=== PATIENT | male | born 1945 | race Caucasian/White ===

== ENCOUNTER 2016-10-22 18:25 | Inpatient (IN) | payer OTHER ==
[~2016-10-22] VITALS: Ht 157.5 cm; Wt 62.2 kg
[2016-10-22 19:58] LABS: BASOPHIL % 0.3 % (0-2); PLATELET COUNT 139 x10^3mcL (130-400)
[2016-10-22] MEDS ORDERED: LIPITOR80 MG PO (19:59)
[2016-10-22] MEDS ORDERED: LEVOTHYROXINE0.1 M2 PO (19:59)
[2016-10-22] MEDS ORDERED: PLAQUENIL200 MG PO (19:59)
[2016-10-22] MEDS ORDERED: ZESTRIL20 MG PO (19:59)
[2016-10-22] MEDS ORDERED: ARAVA20 MG PO (20:00)
[2016-10-22] MEDS ORDERED: METFORMIN HCL500 MG PO (20:00)
[2016-10-22] MEDS ORDERED: METHOTREXATE2.5 M2 PO (20:00)
[2016-10-22] MEDS ORDERED: CLOPIDOGREL75 M1 PO (20:01)
[2016-10-22] MEDS ORDERED: IBUPROFEN400 MG PO (20:01)
[2016-10-22] MEDS ORDERED: MINOCYCLINE HY100 MG PO (20:02)
[2016-10-22] MEDS ORDERED: NORCO 10-325 T1 EACH PO (20:03)
[2016-10-22 20:06] LABS: CALCIUM 8.1 mg/dL (8.5-10.1); CARBON DIOXIDE 22.5 mmol/L (21-32); CREATININE SERUM 1.3 mg/dL (0.7-1.3); POTASSIUM SERUM 3.6 mmol/L (3.5-5.1)
[2016-10-22 20:12] LABS: ALBUMIN 2.5 g/dL (3.4-5.0); BILIRUBIN TOTAL 0.66 mg/dL (0.20-1.00); RED CELL DISTRIBUTION WIDTH 18.3 % (11.5-14.5); TOTAL PROTEIN, SERUM 6.1 g/dL (6.4-8.2)
[2016-10-22 20:23] LABS: CK-MB < 0.5 ng/mL (0-3.6); CREATINE KINASE 40 U/L (39-308)
[2016-10-22 20:34] LABS: microscopic required? YES; urine erythrocyte NEGATIVE (NEGATIVE)
[2016-10-22 22:29] VITALS: BP 119/78
[2016-10-22 22:48] LABS: AMPHETAMINE QUAL UR NONE DETECTED (NEG <=1000)
[2016-10-22 23:02] LABS: T3 TOTAL 0.77 ng/mL
[2016-10-22 23:04] LABS: FREE T4 1.47 ng/dL (0.76-1.46); FREE THYROXINE INDEX 3.6 ug/dL (1.4-4.5); T4(THYROXINE) 8.8 ug/dL (4.7-13.3)
[2016-10-22 23:23] LABS: CHOLESTEROL/HDL RATIO 2.7
[2016-10-23 06:20] VITALS: BP 129/85
[2016-10-23 09:43] VITALS: BP 118/74
[2016-10-23 13:03] VITALS: BP 118/72
[2016-10-23 14:24] LABS: BASOPHIL % 0.3 % (0-2)
[2016-10-23 14:33] LABS: PLATELET COUNT 111 x10^3mcL (130-400)
[2016-10-23 14:39] LABS: CALCIUM 7.8 mg/dL (8.5-10.1); CARBON DIOXIDE 21.7 mmol/L (21-32); CHLORIDE SERUM 109 mmol/L (98-107); GFR1 > 60 mL/min; GLUCOSE SERUM 84 mg/dL (74-106); MAGNESIUM 1.5 mg/dL (1.8-2.4); POTASSIUM SERUM 3.7 mmol/L (3.5-5.1); SODIUM SERUM 140 mmol/L (136-145)
[2016-10-23 17:17] VITALS: BP 124/70
[2016-10-23 21:30] VITALS: BP 115/67
[2016-10-23 23:59] VITALS: Ht 157.5 cm; Wt 62.2 kg
[2016-10-24 05:32] VITALS: BP 105/58
[2016-10-24 07:20] LABS: BASOPHIL % 0.4 % (0-2)
[2016-10-24 07:21] LABS: PLATELET COUNT 107 x10^3mcL (130-400); RED CELL DISTRIBUTION WIDTH 18.7 % (11.5-14.5)
[2016-10-24 08:12] LABS: CALCIUM 7.7 mg/dL (8.5-10.1); CARBON DIOXIDE 21.1 mmol/L (21-32); CHLORIDE SERUM 110 mmol/L (98-107); GFR1 > 60 mL/min; GLUCOSE SERUM 85 mg/dL (74-106); MAGNESIUM 2.4 mg/dL (1.8-2.4); PHOSPHOROUS 2.9 mg/dL (2.5-4.9); POTASSIUM SERUM 3.7 mmol/L (3.5-5.1); SODIUM SERUM 140 mmol/L (136-145)
[2016-10-24 09:45] VITALS: BP 154/92
[2016-10-24 13:35] VITALS: BP 120/72
[2016-10-24 14:52] VITALS: BP 120/72
[2016-10-24] MEDS ORDERED: KEFLEX500 M1 PO (15:01)
[2016-10-24] MEDS ORDERED: LAC PO (15:02)
[2016-10-24 16:05] LABS: BASOPHIL % 1.7 % (0-2)
[2016-10-24 16:07] LABS: PLATELET COUNT 117 x10^3mcL (130-400); RED CELL DISTRIBUTION WIDTH 17.2 % (11.5-14.5)
== END 2016-10-24 17:00 | disposition home or self-care (01) | DRG 602 ==
LOC: ED 18:25 → EDBD 21:24 → DU 21:24
PROVIDERS: Emergency Medicine; Family Medicine; ADMIT Family Medicine
DX: L03.114 Cellulitis of left upper limb (principal); N17.0 Acute kidney failure with tubular necrosis; E43 Unspecified severe protein-calorie malnutrition; I69.354 Hemiplegia and hemiparesis following cerebral infarction affecting left non-dominant side; D68.69 Other thrombophilia; E11.51 Type 2 diabetes mellitus with diabetic peripheral angiopathy without gangrene; E11.65 Type 2 diabetes mellitus with hyperglycemia; M32.9 Systemic lupus erythematosus, unspecified; I10 Essential (primary) hypertension; M62.59 Muscle wasting and atrophy, not elsewhere classified, multiple sites; M06.9 Rheumatoid arthritis, unspecified; Z96.653 Presence of artificial knee joint, bilateral; E03.9 Hypothyroidism, unspecified; M19.90 Unspecified osteoarthritis, unspecified site; Z98.1 Arthrodesis status; Z68.25 Body mass index [BMI] 25.0-25.9, adult; Z85.46 Personal history of malignant neoplasm of prostate; Z79.84 Long term (current) use of oral hypoglycemic drugs
CPT/HCPCS: 80307; 82962; 83880; 84439; J0696; J1956; J2270; J3475; J3490; J7030; Q0092

== ENCOUNTER 2017-02-02 13:24 | Inpatient (IN) | payer OTHER ==
[~2017-02-02] VITALS: Ht 162.6 cm; Wt 66.7 kg
[~2017-02-02 13:24] MED LIST: ARAVA20 MG PO; CLOPIDOGREL75 M1 PO; IBUPROFEN400 MG PO; KEFLEX500 M1 PO; LAC PO; LEVOTHYROXINE0.1 M2 PO; LIPITOR80 MG PO; METFORMIN HCL500 MG PO; METHOTREXATE2.5 M2 PO; MINOCYCLINE HY100 MG PO; NORCO 10-325 T1 EACH PO; PLAQUENIL200 MG PO; ZESTRIL20 MG PO
[2017-02-02 15:14] LABS: BASOPHIL % 0.3 % (0-2); PLATELET COUNT 315 x10^3mcL (130-400)
[2017-02-02 15:20] LABS: RED CELL DISTRIBUTION WIDTH 18.6 % (11.5-14.5)
[2017-02-02 15:27] LABS: CHLORIDE SERUM 107 mmol/L (98-107); CREATININE SERUM 1.1 mg/dL (0.7-1.3); GLUCOSE SERUM 115 mg/dL (74-106); POTASSIUM SERUM 3.7 mmol/L (3.5-5.1); SODIUM SERUM 141 mmol/L (136-145)
[2017-02-02 15:31] LABS: ALKALINE PHOSPHATASE 99 U/L (46-116); ALT/SGPT 16 U/L (16-63); AST/SGOT 22 U/L (15-37); BILIRUBIN TOTAL 0.2 mg/dL (0.20-1.00); TOTAL PROTEIN, SERUM 7.2 g/dL (6.4-8.2)
[2017-02-02 15:32] LABS: ALBUMIN 2.3 g/dL (3.4-5.0)
[2017-02-02 15:58] LABS: UA SPECIFIC GRAVITY 1.015 (1.005-1.035); microscopic required? YES; urine erythrocyte NEGATIVE (NEGATIVE)
[2017-02-02] MEDS ORDERED: METHOTREXATE2.5 M2 PO (16:09)
[2017-02-02] MEDS ORDERED: LEFLUNOMIDE20 MG PO (16:09)
[2017-02-02] MEDS ORDERED: LEVOTHYROXINE0.1 M2 PO (16:11)
[2017-02-02] MEDS ORDERED: LIPITOR80 MG PO (16:11)
[2017-02-02] MEDS ORDERED: FERROUS SULFAT325 M2 PO (16:11)
[2017-02-02] MEDS ORDERED: ZESTRIL20 MG PO (16:12)
[2017-02-02] MEDS ORDERED: METFORMIN500 M1 PO (16:12)
[2017-02-02] MEDS ORDERED: NATURE'S BLEND F1 MG PO (16:12)
[2017-02-02] MEDS ORDERED: ORENCIA125 MG/ML SC (16:13)
[2017-02-02] MEDS ORDERED: NOR10T PO (16:13)
[2017-02-02] MEDS ORDERED: MINOCYCLINE HY100 MG PO (16:14)
[2017-02-02] MEDS ORDERED: PLAQUENIL200 MG PO (16:16)
[2017-02-02] MEDS ORDERED: PLA75 PO (16:16)
[2017-02-02] MEDS ORDERED: [UNRECOGNIZED DRUG - OTHER] (16:16)
[2017-02-02] MEDS ORDERED: [UNRECOGNIZED DRUG - OTHER] (16:17)
[2017-02-02] MEDS ORDERED: ACIDOPHILUS PO (16:18)
[2017-02-02] MEDS ORDERED: PEPCID20 MG PO (16:19)
[2017-02-02] MEDS ORDERED: MEDROL4 MG PO (16:19)
[2017-02-02] MEDS ORDERED: HYDROXYZINE HYD25 MG PO (16:20)
[2017-02-02 16:49] LABS: MAGNESIUM 1.8 mg/dL (1.8-2.4)
[2017-02-02 16:50] LABS: CHOLESTEROL/HDL RATIO 4.3
[2017-02-02 16:56] LABS: T3 TOTAL 0.77 ng/mL
[2017-02-02 17:00] LABS: FREE T4 0.82 ng/dL (0.76-1.46); FREE THYROXINE INDEX 1.8 ug/dL (1.4-4.5); T4(THYROXINE) 4.9 ug/dL (4.7-13.3)
[2017-02-02 17:19] VITALS: BP 162/84
[2017-02-02] MEDS ORDERED: PLAVIX75 M1 PO (19:30)
[2017-02-02 21:09] VITALS: BP 170/94
[2017-02-02 21:39] VITALS: BP 146/88
[2017-02-03 05:49] VITALS: BP 143/83
[2017-02-03 06:17] LABS: BASOPHIL % 0.1 % (0-2); PLATELET COUNT 298 x10^3mcL (130-400)
[2017-02-03 06:27] LABS: RED CELL DISTRIBUTION WIDTH 18.2 % (11.5-14.5)
[2017-02-03 06:40] LABS: CALCIUM 8.4 mg/dL (8.5-10.1); CHLORIDE SERUM 109 mmol/L (98-107); GLUCOSE SERUM 94 mg/dL (74-106); MAGNESIUM 1.6 mg/dL (1.8-2.4); SODIUM SERUM 143 mmol/L (136-145)
[2017-02-03 13:01] VITALS: BP 134/85
[2017-02-03 17:31] VITALS: BP 129/83
[2017-02-03 21:38] VITALS: BP 105/62
[2017-02-04 06:20] VITALS: BP 117/69
[2017-02-04 06:37] LABS: BASOPHIL % 0.5 % (0-2); PLATELET COUNT 331 x10^3mcL (130-400)
[2017-02-04 06:44] LABS: CALCIUM 8.2 mg/dL (8.5-10.1); CARBON DIOXIDE 22.4 mmol/L (21-32); CHLORIDE SERUM 107 mmol/L (98-107); CREATININE SERUM 1.1 mg/dL (0.7-1.3); GLUCOSE SERUM 87 mg/dL (74-106); SODIUM SERUM 140 mmol/L (136-145)
[2017-02-04 06:59] LABS: RED CELL DISTRIBUTION WIDTH 18.7 % (11.5-14.5)
[2017-02-04 09:02] VITALS: BP 126/75
[2017-02-04] MEDS ORDERED: PRO10 PO (10:36)
[2017-02-04] MEDS ORDERED: NEU300 PO (12:46)
[2017-02-04 15:42] VITALS: BP 126/75
== END 2017-02-04 17:20 | disposition home or self-care (01) | DRG 637 ==
LOC: ED 13:24 → DU 15:48 → MU 02-04 00:21
PROVIDERS: Emergency Medicine; ADMIT Family Medicine
PROC: 02HV33Z Insertion of Infusion Device into Superior Vena Cava, Percutaneous Approach (ICD-10-PCS; principal; 2017-02-02)
DX: E11.621 Type 2 diabetes mellitus with foot ulcer (principal); E43 Unspecified severe protein-calorie malnutrition; D68.69 Other thrombophilia; I69.354 Hemiplegia and hemiparesis following cerebral infarction affecting left non-dominant side; L03.032 Cellulitis of left toe; N17.0 Acute kidney failure with tubular necrosis; I10 Essential (primary) hypertension; E03.9 Hypothyroidism, unspecified; M32.9 Systemic lupus erythematosus, unspecified; E11.51 Type 2 diabetes mellitus with diabetic peripheral angiopathy without gangrene; Z96.643 Presence of artificial hip joint, bilateral; Z96.653 Presence of artificial knee joint, bilateral; M81.0 Age-related osteoporosis without current pathological fracture; D64.9 Anemia, unspecified; L97.529 Non-pressure chronic ulcer of other part of left foot with unspecified severity; E87.8 Other disorders of electrolyte and fluid balance, not elsewhere classified; E83.42 Hypomagnesemia; M19.90 Unspecified osteoarthritis, unspecified site; M06.9 Rheumatoid arthritis, unspecified; Z68.25 Body mass index [BMI] 25.0-25.9, adult; Z85.46 Personal history of malignant neoplasm of prostate; Z79.84 Long term (current) use of oral hypoglycemic drugs
CPT/HCPCS: 82962; 83880; 84439; J0295; J2270; J3490; J7030; Q0092